=== PATIENT | female | born 1980 | race Caucasian/White ===

== ENCOUNTER 2025-05-30 21:15 | Emergency (ER) | payer SELFPAY ==
--- NOTE | ~2025-05-30 | CT_ITS ---
EXAMINATION: CT abdomen pelvis wo con DATE: 05/30/2025 22:36 INDICATION: left flank pain/HX OF STONES AND APPDX AND GALLBLADDER REMOV TECHNIQUE: Computed tomography (CT) of the abdomen and pelvis was performed without intravenous contr ast. Automated exposure control and iterative reconstruction technique were employed. The dose-length product was 570.94 mGy-cm. COMPARISON: None. FINDINGS: Lower thorax: Unremarkable Liver: Normal. Biliary/Gallbladder: Gallbladder is absent. No bile duct dilation. Pancreas: No mass or duct dilation. Spleen: Normal. Adrenals:No mass. Kidneys: No suspicious mass, obstructing stone, or hydronephrosis. GI tract: No small or large bowel dilation. Status post appendectomy. Mesentery/Peritoneum: No ascites, mass, or free air. Retroperitoneum: No mass. Pelvis: Pelvic organs are within normal limits. Soft Tissues: Small fat-containing uncomplicated umbilical hernia. Bones: No acute osseous finding. IMPRESSION: No acute abdominopelvic process detected. Reviewed, dictated and finalized at location K.
[2025-05-30 21:17] VITALS: BP 143/103; PULSE 94; RESP 18; TEMP 36.4; O2SAT 93
--- NOTE | 2025-05-30 21:24 | ED_ITS ---
HPI - General Adult General Chief complaint: Urogenital-Female Stated complaint: L FLANK PAIN, HEMATURIA Time Seen by Provider: 05/30/25 21:17 History of Present Illness HPI narrative: Ana is a 45F with a PMH of kidney stones, severe NSAID allergy, allergy to IV contrast that presented to the ED with severe left flank pain and hematuria that started earlier today and has become worse. No fevers, CP, dyspnea or syncope reported. Related Data Allergies Allergy/AdvReac Type Severity Reaction Status Date / Time NSAIDS (Non-Steroidal Allergy Severe Anaphylaxis Verified 05/30/25 21:26 Anti-Inflamma hydromorphone (From Dilaudid) Allergy Intermediate Itching Verified 05/30/25 22:23 iohexol (From contrast - CT, Allergy Intermediate Hives Verified 05/30/25 22:38 X-RAY) morphine Allergy Intermediate Itching Verified 05/30/25 21:26 Penicillins Allergy Intermediate Hives Verified 05/30/25 21:26 Review of Systems 2 Review of Systems: All systems reviewed & are unremarkable except as noted in HPI and below Exam 2 Const: General: cooperative, healthy appearing, comfortable, no acute distress, well developed, alert, awake and Physically active O rientation/consciousness: oriented to person, oriented to place and oriented to time HENMT: Head: normal to inspection, normocephalic and atraumatic Ears: h earing grossly normal bilaterally and external ears normal Face/Nose/Sinus: N ormal external nose present Eyes: General: appearance normal, both eyes and all related structures P eriorbital: periorbital findings normal Sclera: sclerae normal Pupils: E qual, round and reactive pupils present Neck: Neck: normal visual inspection Chest: Chest palpation & inspection: normal inspection of the chest Resp: Effort & Inspection: normal respiratory effort, able to speak in complete sentences and no respiratory distress Auscultation: clear to auscultation bilaterally Cardio: Jugular venous distension: no JVD Rate: regular rate Rhythm: r egular rhythm GI: Inspection: normal to inspection GI Palp: Yes Soft to palpation A uscultation: normal bowel sounds Back/Spine/Pelvis: Other: Severe left flank tenderness. Skin: General skin exam: normal color and no rashes or lesions noted Neuro: General: oriented to person, oriented to place and oriented to time Cranial nerves: Yes Equal, round and reactive pupils present Extrem: General: normal to inspection Course Course Emergency Course: Ordered labs, dilaudid, zofran, CT and UA. UA shows blood, but trace leuk esterase and no nitrites. No leukocytosis. Chemistries unremarkable. EXAMINATION: CT abdomen pelvis wo con DATE: 05/30/2025 22:36 INDICATION: left flank pain/HX OF STONES AND APPDX AND GALLBLADDER REMOV TECHNIQUE: Computed tomography (CT) of the abdomen and pelvis was performed without intravenous contrast. Automated exposure control and iterative reconstruction technique were employed. The dose-length product was 570.94 mGy- cm. COMPARISON: None. FINDINGS: Lower thorax: Unremarkable Liver: Normal. Biliary/Gallbladder: Gallbladder is absent. No bile duct dilation. Pancreas: No mass or duct dilation. Spleen: Normal. Adrenals:No mass. Kidneys: No suspicious mass, obstructing stone, or hydronephrosis. GI tract: No small or large bowel dilation. Status post appendectomy. Mesentery/Peritoneum: No ascites, mass, or free air. Retroperitoneum: No mass. Pelvis: Pelvic organs are within normal limits. Soft Tissues: Small fat-containing uncomplicated umbilical hernia. Bones: No acute osseous finding. IMPRESSION: No acute abdominopelvic process detected. Given the hematuria and pain, but no stone on CT I believe she has passed it already. She was discharged with [place]. She reports she has had this before and does fine with it. Vital Signs Vital signs: Vital Signs Temperature 97.6 F 05/30/25 21:17 Pulse Rate 94 05/30/25 21:17 Respiratory Rate 18 05/30/25 21:17 Blood Pressure 143/103 H 05/30/25 21:17 Pulse Oximetry 93 05/30/25 21:17 Oxygen Delivery Room Air 05/30/25 21:17 Temperature 97.6 F 05/30/25 21:17 Pulse Rate 94 05/30/25 21:17 Respiratory Rate 18 05/30/25 21:17 Blood Pressure 143/103 H 05/30/25 21:17 Pulse Oximetry 93 05/30/25 21:17 Oxygen Delivery Room Air 05/30/25 21:17 Medical Decision Making Vital Signs Vital Signs: Vital Signs Temperature 97.6 F 05/30/25 21:17 Pulse Rate 94 05/30/25 21:17 Respiratory Rate 18 05/30/25 21:17 Blood Pressure 143/103 H 05/30/25 21:17 Pulse Oximetry 93 05/30/25 21:17 Oxygen Delivery Room Air 05/30/25 21:17 Temperature 97.6 F 05/30/25 21:17 Pulse Rate 94 05/30/25 21:17 Respiratory Rate 18 05/30/25 21:17 Blood Pressure 143/103 H 05/30/25 21:17 Pulse Oximetry 93 05/30/25 21:17 Oxygen Delivery Room Air 05/30/25 21:17 Lab Data 05/30/25 22:14 05/30/25 22:14 Labs: Lab Results 05/30/25 05/30/25 Range/Units 21:23 22:14 WBC 8.4 (4.8-10.8) K/mm3 RBC 4.02 L (4.20-5.40) M/mm3 Hgb 12.1 (12.0-15.0) g/dL Hct 35.5 (35.0-49.0) % MCV 88.3 (78.0-102.0) fL MCH 30.1 (27.0-31.0) pg MCHC 34.1 (32-36) g/dL RDW 13.7 (11.6-14.4) % Plt Count 259 (150-420) K/mm3 MPV 10.7 (9.2-11.8) fl Immature Gran % (Auto) 0.2 H (0.0-0.0) % Neut % (Auto) 55.3 (50.0-70.0) % Lymph % (Auto) 29.6 (18.0-42.0) % [place] % (Auto) 9.1 (2.0-11.0) % Eos % (Auto) 5.0 (1.0-6.0) % Baso % (Auto) 0.8 (0.0-1.0) % Lymph # (Auto) 2.50 (1.10-4.50) K/mm3 Cooper # (Auto) 0.77 (0.10-0.90) K/mm3 Eos # (Auto) 0.42 (0.02-0.50) K/mm3 Baso # (Auto) 0.07 (0.00-0.10) K/mm3 Abs Immat Gran (auto) 0.02 H (0.00-0.00) K/mm3 Absolute Neuts (auto) 4.66 (1.70-7.20) K/mm3 Absolute Nucleated RBC 0.00 (0.00-0.00) K/mm3 Nucleated RBC % 0.0 (0-0.0) % Sodium 142 (137-145) mmol/L Potassium 4.2 (3.4-5.0) mmol/L Chloride 111 H (98-107) mmol/L Carbon Dioxide 24 (22-30) mmol/L Anion Gap 7 (4-12) mmol/L BUN 13 (7-17) mg/dL Creatinine 0.76 (0.7-1.0) mg/dL Estim Creat Clear Calc 102 ml/min Estimated GFR > 60 (59 - ) Glucose 98 (65-110) mg/dL Calculated Osmolality 294 (285-295) mOsm/kg Calcium 8.6 (8.4-10.2) mg/dL Total Bilirubin 0.5 (0.2-1.3) mg/dL AST 26 (14-36) U/L ALT 22 (6-35) U/L Alkaline Phosphatase 72 (38-126) U/L Total Protein 7.6 (6.3-8.2) g/dL Albumin 4.2 (3.5-5.1) g/dL Urine Color Light red (Yellow) Urine Appearance Cloudy A (Clear) Urine pH 6.0 (5.0-8.0) Ur Specific [place] >= 1.030 H (1.010-1.020) Urine Protein 1+ H (Negative) Urine Glucose (UA) Negative (Negative) Urine Ketones Negative (Negative) Ur Blood (Man) 3+ H (Negative) Urine Nitrate Negative (Negative) Urine Bilirubin Negative (Negative) Urine Urobilinogen 0.2 (0.2-1.0) mg/dL Leukocyte Esterase Rfl 1+ H (Negative) SEAMUS/UL Urine RBC >100 H (0-2) /hpf Urine WBC 6-10 H (0-3) /hpf Ur Squamous Epith Cells Many H (Few) /hpf Urine Bacteria 1+ H (None) /hpf Urine Test Negative Discharge Plan Discharge Clinical Impression: Calculus, urinary Patient Disposition: Home Condition: Stable Instructions: Kidney Stones (ED) Patient Language: Syriac Prescriptions: New hydrocodone-acetaminophen 5-325 mg tablet 1 tablet PO Q8H PRN (Reason: pain) Qty: 10 0RF Follow-up/Referrals: UNKNOWN,DOCTOR [Primary Care Provider] -
[2025-05-30 21:48] LABS: Add Urine Microscopic? YES; Glucose Urine UA Negative (Negative); Leukocyte Esterase Ur 1+ LEU/UL (Negative); Nitrate Urine Negative (Negative); Specific Grav Ur >= 1.030 (1.010-1.020)
[2025-05-30 21:50] LABS: Appearance Urine Cloudy (Clear)
[2025-05-30] MEDS: HYDROmorphone HCL INJ (*CRX) 2 MG/ML VIAL 0.5 MG IV PUSH ×2 (22:15→23:22)
[2025-05-30] MEDS: SODIUM CHLORIDE 0.9% IV 1,000 ML 999 ML IV CONT (22:15)
[2025-05-30] MEDS: ONDANSETRON INJ 4 MG/2 ML VIAL IV PUSH (22:16)
[2025-05-30 22:17] LABS: Hematocrit 35.5 % (35.0-49.0); Hemoglobin 12.1 g/dL (12.0-15.0); Immature Granulocyte Percent A 0.2 % (0.0-0.0); Lymphocytes Absolute Auto 2.50 K/mm3 (1.10-4.50); Mean Corpuscular HGB Conc 34.1 g/dL (32-36); Mean Corpuscular Hemoglobin 30.1 pg (27.0-31.0); Mean Corpuscular Volume 88.3 fL (78.0-102.0); Nucleated Red Blood Cells Absolute Auto 0.00 K/mm3 (0.00-0.00); Nucleated Red Blood Cells Perc 0.0 % (0-0.0); Platelet Count Result 259 K/mm3 (150-420); Red Blood Count 4.02 M/mm3 (4.20-5.40); White Blood Count 8.4 K/mm3 (4.8-10.8)
[2025-05-30 22:17] LABS: Pregnancy On Board Control Positive
--- NOTE | 2025-05-30 22:27 | PC.NURSE ---
PATIENT TRANSPORTED TO CT VIA WHEELCHAIR
[2025-05-30 22:32] LABS: Alanine Aminotransferase 22 U/L (6-35); Albumin Level 4.2 g/dL (3.5-5.1); Alkaline Phosphatase 72 U/L (38-126); Anion Gap 7 mmol/L (4-12); Aspartate Amino Transferase 26 U/L (14-36); Bilirubin,Total 0.5 mg/dL (0.2-1.3); Blood Urea Nitrogen 13 mg/dL (7-17); Calcium 8.6 mg/dL (8.4-10.2); Carbon Dioxide 24 mmol/L (22-30); Chloride 111 mmol/L (98-107); Estimated CRCL calculation 102 ml/min; Estimated Glomerular Filt Rate > 60; Glucose 98 mg/dL (65-110); Osmolality Calculated 294 mOsm/kg (285-295); Potassium 4.2 mmol/L (3.4-5.0); Sodium 142 mmol/L (137-145); Total Protein 7.6 g/dL (6.3-8.2)
--- NOTE | 2025-05-30 23:19 | PC.NURSE ---
PATIENT IS CURRENTLY RESTING ON STRETCHER. CALL LIGHT IN REACH. WAITING FOR FAMILY TO ARRIVE
[2025-05-30 23:36] VITALS: BP 148/77; PULSE 78; RESP 18; O2SAT 97
== END 2025-05-30 23:43 | disposition home or self-care (01) ==
PROVIDERS: Emergency Provider Family Medicine
DX: N20.9 Urinary calculus, unspecified (principal)
CPT/HCPCS: 36415; 74176; 80053; 81001; 81025; 85025; 96361; 96374; 96375; 96376; 99284; J1171; J1200; J2405; J7030